=== PATIENT | female | born 1965 | race Caucasian/White ===

== ENCOUNTER 2016-12-03 16:02 | Emergency (ER) | payer OTHER ==
[2016-12-03] MEDS ORDERED: MAGNESIUM HYDROXIDE/AL HYDROX 30 ML, LIDOCAINE VISC 2% 200 MG PO ONE ×2 (16:32)
--- NOTE | 2016-12-03 16:35 | Emergency Department Record ---
History of Present Illness - General Chief Complaint: Chest Pain Stated Complaint: CHEST PAIN Time Seen by Provider: 12/03/16 16:25 Source: Patient Mode of Arrival: Ambulatory Limitations: No limitations - History of Present Illness Initial Comments: The patient is here due to waking up at 5am today with lower chest discomfort. She describes it as a chest aching like the indigestion she has had in the past. There is no radiation to her arms, neck or back and she denies any SOB, MATHEUS, sweating or nausea with the pain. The patient did take her medicine for indigestion but it has not helped so she decided to come to the ER for treatment. She also denies any change of the pain with exertion, eating or deep breaths. The patient's only cardiac risk factor is that her father had an NJ at age 45. She does not smoke and she has had her GB removed. Complaint: Chest pain Onset/Timin -: Hour(s) Onset: Awoke with symptoms Pain Location: Substernal, Right chest Severity: Moderate Severity scale (1-10): 4 Quality: Sharp Consistency: Intermittent Improves With: Nothing Worsens With: Nothing Anginal Symptoms: Other Treatments Prior to Arrival: Other Treatment Prior to Arrival Comment:: antacids - Related Data Home Medications Medication Instructions Recorded Confirmed Last Taken Hydroxychloroquine Sulfate 200 mg PO DAILY 12/03/16 12/03/16 12/03/16 [Plaquenil] Levothyroxine Sodium [Synthroid] 175 mcg PO DAILY 12/03/16 12/03/16 12/03/16 Omeprazole [Prilosec] 20 mg PO DAILY 12/03/16 12/03/16 12/03/16 Allergies Allergy/AdvReac Type Severity Reaction Status Date / Time No Known Drug Allergies Allergy Verified 12/03/16 16:06 Travel Screening - Travel/Exposure Within Last 30 Days Have you traveled within the last 30 days?: No - Travel/Exposure Within Last Year Have you traveled outside the [place] in the last year?: No - Additonal Travel Details Have you been exposed to anyone with a communicable illness?: No - Travel Symptoms Symptom Screening: None Past Medical History - SOCIAL HISTORY Smoking Status: Never smoker Alcohol Use: Occasional Drug Use: None - RESPIRATORY Hx Respiratory Disorders: No - CARDIOVASCULAR Hx Cardio Disorders: No - NEURO Hx Neuro Disorders: No - GI Hx GI Disorders: No - Comment:: reflux - ENDOCRINE Hx Endocrine Disorders: Yes Hx Thyroid Disease: Yes - MUSCULOSKELETAL Hx Musculoskeletal Disorders: No Hx Arthritis: Yes (RA) - PSYCH Hx Psych Problems: No - HEMATOLOGY/ONCOLOGY Hx Hematology/Oncology Disorders: No Family Medical History Any Significant Family History?: Yes Hx Heart Disease: Father Hx Kidney Disease: Mother Physical Exam - General General Appearance: Alert, Oriented x3, Cooperative, No acute distress - Head Head exam: Atraumatic, Normocephalic, Normal inspection - Eye Eye exam: Normal appearance, PERRL - ENT Throat exam: Normal inspection. negative: Tonsillar erythema, Tonsillar exudate - Neck Neck exam: Normal inspection, Full ROM. negative: Tenderness - Respiratory Respiratory exam: Normal lung sounds bilaterally, Chest wall tenderness (There is tenderness over her inferior sternum.). negative: Respiratory distress - Cardiovascular Cardiovascular Exam: Regular rate, Normal rhythm, Normal heart sounds - GI/Abdominal GI/Abdominal exam: Soft, Normal bowel sounds. negative: Tenderness - Extremities Extremities exam: Normal inspection, Full ROM, Normal capillary refill. negative: Calf tenderness, Pedal edema, Tenderness - Back Back exam: Reports: Normal inspection - Neurological Neurological exam: Alert, Normal gait. negative: Abnormal gait, Motor sensory deficit Course Vital Signs 12/03/16 16:09 Temperature 97.5 F L Pulse Rate 88 Respiratory 18 Rate Blood Pressure 120/69 Pulse Ox 100 - Reevaluation(s) Reevaluation #1: The patient denies any new issues but states the pain is not any better with the GI medicines. She is resting comfortably with normal vital signs. 12/03/16 17:31 Reevaluation #2: The patient is doing well at this time and the pain is improved. I did explain to her that her tests are all normal but due to no clear cut cause of the pain I do recommend hospital admission for a stress test. The patient is reluctant to stay in the hospital and is choosing to go home. I explained to her that the risks of leaving are that she could go home and have an NJ, stroke, could become disabled and even . The patient understands and accepts the risks and presently has proper decision making capacity. She is instructed to see her PCP KAREN and to return to the ER for any problems or worsening pain. 12/03/16 18:50 Medical Decision Making - Data Complexity MDM Data: Labs Ordered and/or Reviewed, X-Ray Ordered and/or Reviewed, EKG Ordered and/or Reviewed - Lab Data Result diagrams: 12/03/16 16:19 12/03/16 16:19 - EKG Data -: EKG Interpreted by Me EKG: No Acute Changes, Normal EKG - Radiology Data Radiology results: Report reviewed (CXR: Neg.) Disposition Disposition: Discharge Clinical Impression: Chest pain, atypical Disposition: Against Medical Advice Condition: (2) Stable Instructions: Chest Pain (ED) Additional Instructions: Please continue your regular medicines and use Naprosyn for pain. Please see your PCP for recheck tomorrow and to have a stress test scheduled. Please return to the ER for any worsening of the pain, trouble breathing or sweating. Forms: Patient Portal Access Time of Disposition: 18:54 Quality - Quality Measures Quality Measures: N/A - Blood Pressure Screening View Details: Yes Does Patient Have Any of the Following: No Blood Pressure Classification: Pre-Hypertensive BP Reading Systolic Measurement: 129 Diastolic Measurement: 80 Screening for High Blood Pressure: < Pre-Hypertensive BP, F/U Documented > [ [id number]] Pre-Hypertensive Follow-up Interventions: Referral to alternative/primary care provider.
[2016-12-03 16:52] LABS: BASO % 0.6 % (0-6); EOS % 3.1 % (0-6); GRAN % 55.5 % (47-80); HEMATOCRIT 40.9 % (35.0-47.0); HEMOGLOBIN 14.1 gm/dl (11.6-16.0); LYMPH % 34.4 % (16-45); MEAN CELL VOLUME 94.7 fl (81-97); MEAN CORPUSCULAR HEMOGLOBIN 32.6 pg (27-33); MEAN CORPUSCULAR HGB CONC 34.5 g/dl (32-36); MEAN PLATELET VOLUME 11.2 fl (7.4-10.4); MONO % 6.4 % (0-9); PLATELET COUNT 213 K/uL (130-400); RED BLOOD COUNT 4.32 M/uL (3.80-5.40); RED CELL DISTRIBUTION WIDTH 12.1 % (11.5-14.5)
[2016-12-03 17:07] LABS: ANION GAP 10.4 (7-16); BLOOD UREA NITROGEN 9 mg/dL (7-17); CARBON DIOXIDE 27.6 mmol/L (22-30); CREATINE PHOSPHOKINASE 65 U/L (30-135); CREATININE 0.8 mg/dL (0.52-1.04); EST GLOMERULAR FILTRATION RATE > 60 ml/min; GLUCOSE,RANDOM 120 mg/dL (70-110)
[2016-12-03 17:10] LABS: INR 0.97; PARTIAL THROMBOPLASTIN TIME 29.1 SECONDS (24.5-39.1); PROTHROMBIN TIME (PATIENT) 10.5 SECONDS (9.5-12.1)
[2016-12-03 17:12] LABS: D-DIMER 0.23 mg/L FEU (0-0.59)
[2016-12-03 17:19] LABS: CKMB 0.6 ug/L (0-6); TROPONIN I < 0.012 ng/mL (0.00-0.034)
[2016-12-03] MEDS ORDERED: SUCRALFATE 1 G/10 ML UD PO ONE (17:30)
[2016-12-03] MEDS ORDERED: KETOROLAC 30 MG/ML VIAL IVP ONE (18:20)
--- NOTE | 2016-12-04 16:14 | RADIOLOGY REPORT ---
EXAM: CHEST 2 VIEWS HISTORY: ACUTE MID CHEST PAIN FOR ONE DAY. TECHNIQUE: Two-view chest. COMPARISON: None. FINDINGS: Lungs are clear. Cardiac silhouette, diaphragm, and osseous structures are unremarkable. IMPRESSION: NEGATIVE CHEST. JOB NUMBER: [id number] MTDD
== END 2016-12-03 19:03 | disposition left against medical advice (07) ==
LOC: ER 16:02
DX: R07.89 Other chest pain (principal)
CPT/HCPCS: 99284 ×2; 96374; 82550; 85025; 85730; 85610; 82553; 84484; 80048; 85379; 71020; 93005; 93010; J1885